=== PATIENT | male | born 1995 | race Hispanic/Latino ===

== ENCOUNTER 2016-09-26 20:37 | Emergency (ER) | payer SELFPAY ==
[2016-09-26 20:37] VITALS: BMI 24.3
[2016-09-26 20:50] VITALS: TEMP 98.1
[2016-09-26] MEDS ORDERED: Sodium Chloride 0.9% 1,000 ML IV STA (21:12)
--- NOTE | 2016-09-26 21:17 | ED PDOC ---
Arrival/HPI - General Chief Complaint: Chest Pain Time Seen by Provider: 09/26/16 21:05 Historian: Patient - History of Present Illness Narrative History of Present Illness (Text): 09/26/16 21:05 21 y/o male, no significant pmh, nkda, c/o lt. sided chest pain x 1 week x 1 week with no fall or trauma. Pt. stated that he recently started working out, been controlling his diet, been having lt. sided chest pain which aggravated by movement, no shortness of breath or palpitation, no dizziness, no change in vision, no numbness or tingling, no other medical or psychological complaints. Past Medical History - Provider Review Nursing Documentation Reviewed: Yes - Past History Past History: No Previous - Infectious Disease Hx of Infectious Diseases: None - Tetanus Immunization Tetanus Immunization: Unknown - Past Medical History Past Medical History: No Previous - Cardiac Hx Cardiac Disorders: No - Musculoskeletal/Rheumatological Hx Falls: No - Gastrointestinal Hx Gastrointestinal Disorders: Yes Hx Pancreatitis: Yes - Genitourinary/Gynecological Hx Genitourinary Disorders: No - Psychiatric Hx Psychophysiologic Disorder: No Hx Anxiety: No Hx Bipolar Disorder: No Hx Depression: No Hx Emotional Abuse: No Hx Hallucinations: No Hx Panic Disorder: No Hx Post Traumatic Stress Disorder: No Hx Psychosis: No Hx Physical Abuse: No Hx Schizophrenia: No Hx Sexual Abuse: No Hx Substance Use: No (PT DENIES) - Past Surgical History Past Surgical History: No Previous - Anesthesia Hx Anesthesia: No Hx Anesthesia Reactions: No Hx Malignant Hyperthermia: No - Suicidal Assessment Feels Threatened In Home Enviroment: No Family/Social History - Physician Review Nursing Documentation Reviewed: Yes Family/Social History: Unknown Family HX Smoking Status: Never Smoked Hx Alcohol Use: No (PT DENIES) Hx Substance Use: No (PT DENIES) Hx Substance Use Treatment: No Allergies/Home Meds Allergies/Adverse Reactions: Allergies No Known Allergies Allergy (Verified 09/26/16 20:47) Review of Systems - Review of Systems Constitutional: absent: Fatigue, Fevers Eyes: absent: Vision Changes ENT: absent: Hearing Changes Respiratory: absent: SOB, Cough Cardiovascular: absent: Chest Pain Gastrointestinal: absent: Abdominal Pain, Nausea, Vomiting Musculoskeletal: Myalgias. absent: Arthralgias, Back Pain, Neck Pain, Joint Swelling Skin: absent: Rash, Pruritis, Skin Lesions Physical Exam Vital Signs Reviewed: Yes Vital Signs Temp Pulse Resp BP Pulse Ox 09/26/16 23:06 61 18 108/76 98 09/26/16 20:50 98.1 F 58 L 19 112/71 97 Temperature: Afebrile Blood Pressure: Normal Pulse: Bradycardic Respiratory Rate: Normal Appearance: Positive for: Well-Appearing, Non-Toxic, Comfortable Pain Distress: Mild Mental Status: Positive for: Alert and Oriented X 3 - Systems Exam Head: Present: Atraumatic, Normocephalic Pupils: Present: PERRL Extroacular Muscles: Present: EOMI Conjunctiva: Present: Normal Mouth: Present: Moist Mucous Membranes Neck: Present: Normal Range of Motion Respiratory/Chest: Present: Clear to Auscultation, Good Air Exchange, Other ( pain is 100% reproducible on palpating the lt. anterior lateral rib cage region) . No: Respiratory Distress, Accessory Muscle Use, Wheezes, Decreased Breath Sounds, Rales, Retracting, Rhonchi, Tachypneic, Tender to Palpation Cardiovascular: Present: Regular Rate and Rhythm, Normal S1, S2. No: Murmurs Abdomen: Present: Normal Bowel Sounds. No: Tenderness, Distention, Peritoneal Signs Back: Present: Normal Inspection. No: CVA Tenderness, Midline Tenderness Upper Extremity: Present: Normal Inspection. No: Cyanosis, Edema Lower Extremity: Present: Normal Inspection. No: Edema Neurological: Present: GCS=15, CN II-XII Intact, Speech Normal Skin: Present: Warm, Dry, Normal Color. No: Rashes Psychiatric: Present: Alert, Oriented x 3, Normal Insight, Normal Concentration Medical Decision Making ED Course and Treatment: 09/26/16 21:13 -labs/uds -EKG/chest x-ray -IVF -observe and reassesss 09/26/16 22:38 -Labs are nonsignificant, negative troponin, negative Lipase, negative BNP -Urinalysis show no UTI -UDS show positive cannabinoid. -Chest x-ray show no acute findings -Bilateral ribs show no acute findings. -EKG: Sinus Bradycardia @ 48 BPM, no ST elevation or depression, no T wave inversion. -Pain relief with the toradol IV. -Pt. feels much better, no pain or discomfort, will discharge home. -Discharge home with motrin, bed rest, avoid strenuous exercise or activity, no gym or exercise until clear by the cadiologist, follow up with your own pmd and ad trafficker within 2 days, return to the ER for any new or worsening signs or symptoms. - Lab Interpretations Lab Results: 09/26/16 20:00 09/26/16 20:00 Lab Results 09/26/16 21:46: Urine Opiates Screen Negative, Urine Methadone Screen Negative, Ur Barbiturates Screen Negative, Ur Phencyclidine Scrn Negative, Ur Amphetamines Screen Negative, U Benzodiazepines Scrn Negative, U Oth Cocaine Metabols Negative, U Cannabinoids Screen Positive H 09/26/16 21:46: Urine Color Yellow, Urine Appearance Clear, Urine pH 6.0, Ur Specific [place] 1.025, Urine Protein Negative, Urine Glucose (UA) Negative, Urine Ketones Negative, Urine Blood Negative, Urine Nitrate Negative, Urine Bilirubin Negative, Urine Urobilinogen 0.2, Ur Leukocyte Esterase Negative 09/26/16 20:00: Sodium 139, Potassium 4.2, Chloride 102, Carbon Dioxide 26, Anion Gap 15, BUN 16, Creatinine 0.8, Est GFR ( Amer) > 60, Est GFR (Non- Af Amer) > 60, Random Glucose 89, Calcium 9.5, Total Bilirubin 0.9, AST 35, ALT 36, Alkaline Phosphatase 64, Lactate Dehydrogenase 375, Total Creatine Kinase 206, Troponin I < 0.01, NT-Pro-B Natriuret Pep 34.1, Total Protein 7.6, Albumin 4.6, Globulin 3.1, Albumin/Globulin Ratio 1.5, Lipase 40 09/26/16 20:00: WBC 6.4, RBC 4.66, Hgb 14.2, Hct 40.6 L, MCV 87.1, MCH 30.5, MCHC 35.0, RDW 12.9, Plt Count 197, MPV 9.9, Gran % 46.7 L, Lymph % (Auto) 41.0 H, [place] % (Auto) 6.3 H, Eos % (Auto) 5.5 H, Baso % (Auto) 0.5, Gran # 2.99, Lymph # 2.6, Mil[place] # 0.4, Eos # 0.4, Baso # 0.03 I have reviewed the lab results: Yes Interpretation: Abnormal lab values (+cannabinoid) - RAD Interpretation Radiology Orders: 09/26/16 21:16 CHEST TWO VIEWS (PA/LAT) [RAD] Stat RIBS BILATERAL [RAD] Stat Chest x-ray: no active disease Bilateral Rib xrays: negative studies. Turner Splitter Machine Operator: Radiologist - Medication Orders Current Medication Orders: Discontinued Medications Sodium Chloride (Sodium Chloride 0.9%) 1,000 mls @ 999 mls/hr IV .Q1H1M STA Stop: 09/26/16 22:12 Last Admin: 09/26/16 21:40 Dose: 999 mls/hr Ketorolac Tromethamine (Toradol) 30 mg IVP STAT STA Stop: 09/26/16 22:38 Last Admin: 09/26/16 23:05 Dose: Not Given Non-Admin Reason: Patient Refused Ketorolac Tromethamine (Toradol) Confirm Administered Dose 30 mg .ROUTE .STK- MED ONE Stop: 09/26/16 22:44 - PA / ORTHOPAEDIC PHYSICIAN ASSISTANT / Resident Statement / has reviewed & agrees with the documentation as recorded. Disposition/Present on Arrival - Present on Arrival Any Indicators Present on Arrival: No History of DVT/PE: No History of Uncontrolled Diabetes: No Urinary Catheter: No History of Decub. Ulcer: No History Surgical Site Infection Following: None - Disposition Have Diagnosis and Disposition been Completed?: Yes Diagnosis: Atypical chest pain Disposition: HOME/ ROUTINE Disposition Time: 22:42 Patient Plan: Discharge Condition: GOOD Discharge Instructions (ExitCare): Chest Pain (ED) Additional Instructions: Discharge home with motrin, bed rest, avoid strenuous exercise or activity, no gym or exercise until clear by the cadiologist, follow up with your own pmd and ad trafficker within 2 days, return to the ER for any new or worsening signs or symptoms. Prescriptions: Ibuprofen [Motrin Tab] 600 mg PO TID PRN #21 tab PRN Reason: Other Referrals: Pattie Ceballos MD [Primary Care Provider] - Follow up with primary Bryant Allen MD [Staff Provider] - Follow up with primary Forms: WORK NOTE
[2016-09-26 21:40] LABS: ADD MANUAL DIFF? NO
[2016-09-26 21:46] LABS: BASO # 0.03 K/mm3 (0.0-2.0); BASO % 0.5 % (0.0-3.0); EOS # 0.4 (0.0-0.7); EOS % 5.5 % (1.5-5.0); GRAN # 2.99 (1.4-6.5); GRAN % 46.7 % (50.0-68.0); HEMATOCRIT 40.6 % (42.0-52.0); LYMPH # 2.6 (1.2-3.4); MEAN CELL VOLUME 87.1 fL (80.0-105.0); MEAN CORPUSCULAR HEMOGLOBIN 30.5 pg (25.0-35.0); MEAN PLATELET VOLUME 9.9 fl (7.0-11.0); MONO # 0.4 (0.1-0.6); MONO % 6.3 % (1.0-6.0); PLATELET COUNT 197 10^3/uL (120.0-450.0); RED CELL DISTRIBUTION WIDTH 12.9 % (11.5-14.5); WHITE BLOOD COUNT 6.4 10^3/ul (4.5-11.0)
[2016-09-26 21:54] LABS: ALB/GLOB RATIO 1.5 (1.1-1.8); ALKALINE PHOSPHATASE 64 U/L (38-133); ALT/SGPT 36 U/L (7-56); AST/SGOT 35 U/L (15-59); BILIRUBIN,TOTAL 0.9 mg/dL (0.2-1.3); BLOOD UREA NITROGEN 16 mg/dL (7-21); CALCIUM 9.5 mg/dL (8.4-10.5); CARBON DIOXIDE 26 mmol/L (21-33); CHLORIDE 102 mmol/L (98-107); GFR AFRICAN-AMERICAN > 60; GLUCOSE,RANDOM 89 mg/dL (70-110); LIPASE 40 U/L (23-300); POTASSIUM 4.2 mmol/L (3.6-5.0); SODIUM 139 mmol/L (132-148); TOTAL PROTEIN 7.6 g/dL (5.8-8.3)
[2016-09-26 22:06] LABS: TROPONIN I < 0.01 ng/mL
[2016-09-26 22:08] LABS: URINE BILIRUBIN NEGATIVE (NEGATIVE); URINE BLOOD NEGATIVE (NEGATIVE); URINE GLUCOSE (UA) NEGATIVE (NEGATIVE); URINE KETONE NEGATIVE (NEGATIVE); URINE LEUKOCYTE ESTERASE NEGATIVE Leu/uL (NEGATIVE); URINE PROTEIN NEGATIVE mg/dL (<30 mg/dL); URINE UROBILINOGEN 0.2 E.U./dL (<1 E.U./dL)
[2016-09-26 22:09] LABS: URINE APPEARANCE CLEAR (CLEAR); URINE COLOR YELLOW (YELLOW)
[2016-09-26 23:06] VITALS: BP 108/76; PULSE 61; RESP 18; O2SAT 98
--- NOTE | 2016-09-27 07:47 | RAD ---
PROCEDURE: Bilateral ribs HISTORY: lt. rib injury pain COMPARISON: TECHNIQUE: Four views FINDINGS: There is no evidence of displaced rib fracture or pneumothorax IMPRESSION: Negative study
--- NOTE | 2016-09-27 07:49 | RAD ---
HISTORY: lt. sided chest pain x 1 week COMPARISON: No prior. TECHNIQUE: Chest PA and lateral FINDINGS: LUNGS: No active pulmonary disease. PLEURA: No significant pleural effusion identified. No pneumothorax apparent. CARDIOVASCULAR: Normal. OSSEOUS STRUCTURES: No significant abnormalities. VISUALIZED UPPER ABDOMEN: Normal. OTHER FINDINGS: None. IMPRESSION: No active disease.
--- NOTE | 2016-09-27 09:53 | CARD ---
APPROVED REPORT EKG Measurement Heart [id number] <Conclusion> Marked sinus bradycardia with marked sinus arrhythmia Abnormal ECG
== END 2016-09-26 23:06 | disposition home or self-care (01) ==
LOC: ED 20:37
DX: R07.89 Other chest pain (principal)
CPT/HCPCS: 71020; 71110; 80053; 81003; 82550; 83615; 83690; 83880; 84484; 85025; 93005; 96360; 99284; G0480; J7040

== ENCOUNTER 2017-05-01 10:59 | Emergency (ER) | payer MEDICAID ==
[2017-05-01 11:09] VITALS: BMI 21.2
[2017-05-01 11:13] VITALS: RESP 16; TEMP 98.5
--- NOTE | 2017-05-01 13:08 | RAD ---
HISTORY: COMPARISON: 09/26/2016. TECHNIQUE: Chest PA and lateral FINDINGS: LINES AND TUBES: None. LUNG AND PLEURA: The lungs are well inflated and clear. HEART AND MEDIASTINUM: The heart is not enlarged. The hilar and mediastinal contours are within normal limits. SKELETAL STRUCTURES: The bony structures are within normal limits for the patient's age. VISUALIZED UPPER ABDOMEN: Normal. OTHER FINDINGS: None. IMPRESSION: No active pulmonary disease.
--- NOTE | 2017-05-01 13:22 | ED PDOC ---
Arrival/HPI - General Chief Complaint: Flu-like Symptoms Time Seen by Provider: 05/01/17 11:15 Historian: Patient, Parent - History of Present Illness Narrative History of Present Illness (Text): 05/01/17 13:19 22-year-old male presents today with cough and nasal congestion and sore throat that started last night. Patient states he developed high fever last night. Patient states he did not take his temperature but he felt very hot. He denies chest pain or shortness of breath. No nausea or vomiting. Denies dizziness or weakness. No sick contacts. Patient states cough is dry and nonproductive. No other complaints Time/Duration: Other (last night) Symptom Onset: Sudden Symptom Course: Unchanged Quality: Aching Severity Level: Moderate Past Medical History - Provider Review Nursing Documentation Reviewed: Yes - Travel History Have you recently traveled outside [place] w/in the past 3 mons?: No - Past History Past History: No Previous - Infectious Disease Hx of Infectious Diseases: None - Tetanus Immunization Tetanus Immunization: Unknown - Past Medical History Past Medical History: No Previous - Cardiac Hx Cardiac Disorders: No - Musculoskeletal/Rheumatological Hx Falls: No - Gastrointestinal Hx Gastrointestinal Disorders: Yes Hx Pancreatitis: Yes - Genitourinary/Gynecological Hx Genitourinary Disorders: No - Psychiatric Hx Psychophysiologic Disorder: No Hx Anxiety: No Hx Bipolar Disorder: No Hx Depression: No Hx Emotional Abuse: No Hx Hallucinations: No Hx Panic Disorder: No Hx Post Traumatic Stress Disorder: No Hx Psychosis: No Hx Physical Abuse: No Hx Schizophrenia: No Hx Sexual Abuse: No Hx Substance Use: No (PT DENIES) - Past Surgical History Past Surgical History: No Previous - Anesthesia Hx Anesthesia: No Hx Anesthesia Reactions: No Hx Malignant Hyperthermia: No - Suicidal Assessment Feels Threatened In Home Enviroment: No Family/Social History - Physician Review Nursing Documentation Reviewed: Yes Family/Social History: Unknown Family HX Smoking Status: Never Smoked Hx Alcohol Use: No (PT DENIES) Hx Substance Use: No (PT DENIES) Hx Substance Use Treatment: No Allergies/Home Meds Allergies/Adverse Reactions: Allergies No Known Allergies Allergy (Verified 05/01/17 11:09) Review of Systems - Review of Systems Constitutional: Fatigue, Fevers ENT: Sore Throat, Sinus Congestion Respiratory: Cough Cardiovascular: absent: Chest Pain, Palpitations Gastrointestinal: absent: Abdominal Pain, Nausea, Vomiting Genitourinary Male: absent: Dysuria Musculoskeletal: Other (bodyaches). absent: Arthralgias Skin: absent: Rash, Pruritis Neurological: Headache. absent: Dizziness Psychiatric: absent: Anxiety, Depression Physical Exam Vital Signs Reviewed: Yes Vital Signs Temp Pulse Resp BP Pulse Ox 05/01/17 11:12 98.5 F 81 16 119/60 96 Temperature: Afebrile Blood Pressure: Normal Pulse: Regular Respiratory Rate: Normal Appearance: Positive for: Well-Appearing, Non-Toxic, Comfortable Pain Distress: None Mental Status: Positive for: Alert and Oriented X 3 - Systems Exam Head: Present: Atraumatic Extroacular Muscles: Present: EOMI Conjunctiva: Present: Normal Mouth: Present: Moist Mucous Membranes Pharnyx: Present: Normal. No: ERYTHEMA, EXUDATE, TONSILS ENLARGED, Peritonsilar Swelling, Uvular Deviation, Muffled/Hoarse Voice Nose (External): Present: Atraumatic Nose (Internal): Present: Normal Inspection, No Active Bleeding. No: Epistaxis Neck: Present: Normal Range of Motion Respiratory/Chest: Present: Clear to Auscultation, Good Air Exchange. No: Respiratory Distress, Accessory Muscle Use Cardiovascular: Present: Regular Rate and Rhythm, Normal S1, S2. No: Murmurs Abdomen: No: Tenderness, Distention, Rebound, Guarding Back: Present: Normal Inspection Upper Extremity: Present: Normal ROM Lower Extremity: Present: Normal ROM Neurological: Present: GCS=15 Skin: Present: Warm, Dry, Normal Color. No: Rashes Psychiatric: Present: Alert, Oriented x 3 Medical Decision Making ED Course and Treatment: 05/01/17 13:22 Patient is nontoxic well-appearing in no distress. Vital signs are stable. pt took motrin 2 hours prior to arrival. tylenol given pO rapid flu; + cxr; no infiltrate. as read by radiologist. tamiflu given PO pt reassessment; pt non toxic well appearing; no distress. stable vitals. Discussed all results and also the patient stressed importance of follow-up with a primary care physician. Advised increasing fluids and taking Tamiflu twice daily 5 days. Advised immediate return if symptoms worsen persist or if new concerning symptoms develop Patient verbalizes understanding of discharge instructions and need for immediate followup. all aspects of this case were discussed the attending of record. IMPRESSION; influenza Motrin one tablet every 6 hours as needed for pain Tamiflu; 1 capsule twice daily x 5 days. Increase fluids Followup with primary care physician the next 2 days Return if symptoms worsen persist or if new symptoms develop - Lab Interpretations Lab Results: Lab Results 05/01/17 11:15: Influenza Typ A,B (EIA) Pos for influenza a H - RAD Interpretation Radiology Orders: 05/01/17 11:54 CHEST TWO VIEWS (PA/LAT) [RAD] Stat - Medication Orders Current Medication Orders: Discontinued Medications Acetaminophen (Tylenol 325mg Tab) 975 mg PO STAT STA Stop: 05/01/17 11:55 Last Admin: 05/01/17 11:58 Dose: 975 mg MAR Pain/Vitals Document 05/01/17 11:58 SE (Rec: 05/01/17 11:58 SE [id number]) Pain Reassessment Is This A Pain ReAssessment? No Sleep Is patient sleeping during reassessment? No Presence of Pain Presence of Pain Yes Pain Scale Used Pain Scale Used Numeric Oseltamivir Phosphate (Tamiflu Cap) 75 mg PO STAT STA PRN Reason: Protocol Stop: 05/01/17 12:12 Last Admin: 05/01/17 12:25 Dose: 75 mg Disposition/Present on Arrival - Present on Arrival Any Indicators Present on Arrival: No History of DVT/PE: No History of Uncontrolled Diabetes: No Urinary Catheter: No History of Decub. Ulcer: No History Surgical Site Infection Following: None - Disposition Have Diagnosis and Disposition been Completed?: Yes Diagnosis: Influenza Disposition: HOME/ ROUTINE Disposition Time: 13:24 Patient Plan: Discharge Condition: GOOD Discharge Instructions (ExitCare): Influenza (ED) Additional Instructions: Motrin one tablet every 6 hours as needed for pain Tamiflu; 1 capsule twice daily x 5 days. Increase fluids Followup with primary care physician the next 2 days Return if symptoms worsen persist or if new symptoms develop: high fevers, increasing pain, weakness, dizziness, or if any other concerning symptoms develop. Prescriptions: Ibuprofen [Motrin] 600 mg PO Q6H PRN #20 tab PRN Reason: pain/fever reduction Oseltamivir [Tamiflu] 75 mg PO BID #10 cap Referrals: Betty Wiley MD [Primary Care Provider] - Follow up with primary Forms: [employer] (Libyan)
[2017-05-01 13:35] VITALS: BP 126/78; PULSE 76; O2SAT 100
== END 2017-05-01 14:11 | disposition home or self-care (01) ==
LOC: ED 10:59
DX: J11.1 Influenza due to unidentified influenza virus with other respiratory manifestations (principal)

== ENCOUNTER 2017-05-01 18:31 | Emergency (ER) | payer MEDICAID ==
[2017-05-01 18:31] VITALS: BMI 21.2
[2017-05-01] MEDS ORDERED: Sodium Chloride 0.9% 1,000 ML IV STA (19:03)
--- NOTE | 2017-05-01 19:03 | ED PDOC ---
Arrival/HPI - General Chief Complaint: Flu-like Symptoms Time Seen by Provider: 05/01/17 18:34 Historian: Patient, Parent EM Caveat: Unstable Vital Signs - History of Present Illness Narrative History of Present Illness (Text): 05/01/17 18:58 Pt is a 22 yo M BIB his mother for continued fever and vomiting s/p earlier ER evaluation and positive dx of Influenza. Pt was treated with Tamiflu and advised to rest and get fluids at home. Mother brought her son back to the ER for fear of a more severe form of flu that she feels should be treated. Pt continues to have a fever of 104F, aches and vomiting but denies cp, sob, diarrhea. Mother states that her son cannot keep any food or fluids down and although Ibuprofen and zofran were given approx 75 mins earlier, there is no change in his status. 05/01/17 19:06 Time/Duration: 4-6 hours Symptom Onset: Gradual Symptom Course: Unchanged Quality: Aching Severity Level: Mild Activities at Onset: Rest Context: Home Past Medical History - Provider Review Nursing Documentation Reviewed: Yes - Travel History Have you recently traveled outside [place] w/in the past 3 mons?: No - Past History Past History: No Previous - Infectious Disease Hx of Infectious Diseases: None - Tetanus Immunization Tetanus Immunization: Unknown - Past Medical History Past Medical History: No Previous - Cardiac Hx Cardiac Disorders: No - Musculoskeletal/Rheumatological Hx Falls: No - Gastrointestinal Hx Gastrointestinal Disorders: Yes Hx Pancreatitis: Yes - Genitourinary/Gynecological Hx Genitourinary Disorders: No - Psychiatric Hx Psychophysiologic Disorder: No Hx Anxiety: No Hx Bipolar Disorder: No Hx Depression: No Hx Emotional Abuse: No Hx Hallucinations: No Hx Panic Disorder: No Hx Post Traumatic Stress Disorder: No Hx Psychosis: No Hx Physical Abuse: No Hx Schizophrenia: No Hx Sexual Abuse: No Hx Substance Use: No (PT DENIES) - Past Surgical History Past Surgical History: No Previous - Anesthesia Hx Anesthesia: No Hx Anesthesia Reactions: No Hx Malignant Hyperthermia: No - Suicidal Assessment Feels Threatened In Home Enviroment: No Family/Social History - Physician Review Nursing Documentation Reviewed: Yes Family/Social History: Unknown Family HX Smoking Status: Never Smoked Hx Alcohol Use: No (PT DENIES) Hx Substance Use: No (PT DENIES) Hx Substance Use Treatment: No Allergies/Home Meds Allergies/Adverse Reactions: Allergies No Known Allergies Allergy (Verified 05/01/17 18:54) Review of Systems - Physician Review All systems were reviewed & negative as marked: Yes - Review of Systems Systems not reviewed;Unavailable: Unstable Vital Signs Constitutional: Fatigue, Fevers Eyes: Normal ENT: Normal Respiratory: Normal Cardiovascular: Normal Gastrointestinal: Vomiting, Appetite Changes, Food Intolerance Genitourinary Male: Urinary Output Changes Musculoskeletal: Normal Skin: Normal Neurological: Normal Endocrine: Normal Hemo/Lymphatic: Normal Psychiatric: Normal Physical Exam Vital Signs Reviewed: Yes Vital Signs Temp Pulse Resp BP Pulse Ox 05/01/17 20:44 100.0 F H 76 18 122/76 99 05/01/17 18:57 102.2 F H 67 16 116/72 97 05/01/17 18:55 102.2 F H Temperature: Febrile (102) Blood Pressure: Normal Pulse: Regular Respiratory Rate: Normal Appearance: Positive for: Ill-Appearing, Uncomfortable Pain Distress: None Mental Status: Positive for: Alert and Oriented X 3 - Systems Exam Head: Present: Atraumatic, Normocephalic Pupils: Present: PERRL Extroacular Muscles: Present: EOMI Conjunctiva: Present: Normal Mouth: Present: Moist Mucous Membranes Neck: Present: Normal Range of Motion Respiratory/Chest: Present: Clear to Auscultation, Good Air Exchange. No: Respiratory Distress, Accessory Muscle Use Cardiovascular: Present: Regular Rate and Rhythm, Normal S1, S2. No: Murmurs Abdomen: Present: Normal Bowel Sounds. No: Tenderness, Distention, Peritoneal Signs Back: Present: Normal Inspection Upper Extremity: Present: Normal Inspection. No: Cyanosis, Edema Lower Extremity: Present: Normal Inspection. No: Edema Neurological: Present: GCS=15, CN II-XII Intact, Speech Normal Skin: Present: Warm, Dry, Normal Color. No: Rashes Psychiatric: Present: Oriented x 3, Normal Insight, Normal Concentration Medical Decision Making ED Course and Treatment: 05/01/17 19:07 Pt is a 22 yo M BIB his mother for continued fever and vomiting s/p earlier ER evaluation and positive dx of Influenza. Plan: IVF 1L bolus over 60 mins acetaminophen for fever Monitor 05/01/17 20:50 Progress: Pt was given 1L of fluids along with 650mg acetaminophen po; pt appeared more alert, with good color and afebrile VSS, able to ambulate Reassessment Condition: Improved - Medication Orders Current Medication Orders: Discontinued Medications Acetaminophen (Tylenol 325mg Tab) 650 mg PO STAT STA Stop: 05/01/17 19:48 Last Admin: 05/01/17 19:53 Dose: 650 mg MAR Pain/Vitals Document 05/01/17 19:53 KATIE (Rec: 05/01/17 19:[address] [id number]) Pain Reassessment Is This A Pain ReAssessment? No Sodium Chloride (Sodium Chloride 0.9%) 1,000 mls @ 999 mls/hr IV .Q1H1M STA Stop: 05/01/17 20:03 Last Admin: 05/01/17 19:54 Dose: 999 mls/hr eMAR Start Stop Document 05/01/17 19:54 KATIE (Rec: 05/01/17 19:[address] [id number]) Intravenous Solution Start Date 05/01/17 Start Time 19:54 End Date 05/01/17 End time 20:54 Total Infusion Time 60 Disposition/Present on Arrival - Present on Arrival Any Indicators Present on Arrival: Yes History of DVT/PE: No History of Uncontrolled Diabetes: No Urinary Catheter: No History Surgical Site Infection Following: None - Disposition Have Diagnosis and Disposition been Completed?: Yes Diagnosis: Influenza, Fever, Dehydration Disposition: HOME/ ROUTINE Disposition Time: 20:52 Patient Plan: Discharge Condition: STABLE Additional Instructions: Continue to drink plenty of fluids and get lots of rest when you get home. Take the medications prescribed and see your family doctor in the next 48 hrs for follow up. Eat a bland and soft diet. If you develop alarming symptoms such as shortness of breath and very high fever , return to the emergency room. Forms: [employer] (Frisian)
[2017-05-01 20:44] VITALS: BP 122/76; PULSE 76; RESP 18; TEMP 100; O2SAT 99
== END 2017-05-01 20:55 | disposition home or self-care (01) ==
LOC: ED 18:31
DX: J11.1 Influenza due to unidentified influenza virus with other respiratory manifestations (principal); E86.0 Dehydration
CPT/HCPCS: 96360; 99283; J7040